=== PATIENT | male | born 1995 | race Caucasian/White ===

== ENCOUNTER 2020-02-06 15:52 | Emergency (ER) | payer OTHER ==
[~2020-02-06] VITALS: Ht 170.2 cm; Wt 87.6 kg
[2020-02-06 15:52] VITALS: BP 139/63
[2020-02-06] MEDS ORDERED: IBUP-1114 PO (16:16)
[2020-02-06] MEDS ORDERED: AUGM875T28 PO (16:49)
== END 2020-02-06 16:54 | disposition home or self-care (01) ==
LOC: M ED 15:52
DX: H66.93 Otitis media, unspecified, bilateral (principal); H92.03 Otalgia, bilateral